=== PATIENT | male | born 1980 | race Caucasian/White ===

== ENCOUNTER 2023-03-28 12:04 | Emergency (ER) | payer MEDICARE, MEDICAID, SELFPAY ==
[2023-03-28] VITALS (23 sets, daily range): BP systolic 68–117; BP diastolic 29–72; PULSE 68–98; RESP 13–28; TEMP 36.1; O2SAT 82–100
--- NOTE | 2023-03-28 12:11 | ED.DIZZY ---
HPI - Dizziness General Chief Complaint: Dizziness Stated Complaint: low blood pressure Time Seen by Provider: 03/28/23 12:08 Source: patient, EMS and RN notes reviewed Mode of arrival: EMS Limitations: no limitations History of Present Illness HPI Narrative: patient states that shortly after breakfast he just did not feel good . He tried to go to work but he continued to feel weak lightheaded general malaise. He has a history of coronary artery disease, hypertension, hyperlipidemia. He denies any cough, nausea vomiting diarrhea, urinary symptoms, fever chills. Consequently feeling so bad he called an ambulance and they found him to have low blood pressure 60 over palp. MD elicited complaint: lightheadedness and other ( Low BP) Onset (ago): hour(s) (5) Timing: sudden onset Severity: moderate Description: lightheadedness Exacerbating factors: movement/ambulation Relieving factors: rest Associated symptoms: denies other symptoms Related Data Home Medications Medication Instructions Recorded Confirmed clindamycin HCl 300 mg capsule 300 mg PO DAILY 03/28/23 03/28/23 hydrochlorothiazide 25 mg tablet 25 mg PO DAILY 03/28/23 03/28/23 lisinopril 40 mg tablet 40 mg PO DAILY 03/28/23 03/28/23 prazosin 2 mg capsule 2 mg PO DAILY 03/28/23 03/28/23 simvastatin 40 mg tablet 40 mg PO DAILY 03/28/23 03/28/23 Allergies Allergy/AdvReac Type Severity Reaction Status Date / Time aspirin Allergy Unknown INTERNAL Verified 03/28/23 12:29 BLEEDING PMFSH Past Medical History Medical History (Updated 03/28/23 @ 14:30 by Cory Mckinley MD) Coronary artery disease Hyperlipidemia Hypertension Surgical History Surgical History (Updated 03/28/23 @ 12:34 by Cory Mckinley MD) Coronary artery disease involving coronary bypass graft of [place] heart Exam Const: General: no acute distress, confusion, diaphoretic and ill appearing acutely Nutritional Appearance: well nourished and obese Orientation/consciousness: patient oriented x3 Limitations: no limitations HENMT: Head: normal to inspection Ears: EAC's normal Face/Nose/Sinus: Normal external nose present Face and sinus: normal facial exam Mouth: Yes dry mucous membranes Eyes: Conjunctivae: conjunctivae normal Pupils: Equal, round and reactive pupils present EOM: EOMs intact bilaterally Neck: Neck: normal visual inspection Resp: Effort & Inspection: normal respiratory effort Auscultation: clear to auscultation bilaterally Cardio: Rate: regular rate Rhythm: regular rhythm GI: GI Palp: Yes Soft to palpation and No Tenderness to palpation present (GI) Auscultation: normal bowel sounds Back/Spine/Pelvis: Cervical Spine: cervical ROM normal Thoracic/Lumbar Spine: thoraco-lumbar ROM normal Skin: General skin exam: normal color Rashes: no rashes Neuro: General: patient oriented x3, moves all extremities, no focal motor deficits and CN's II-XI intact bilaterally Speech: normal speech Extrem: General: normal to inspection and no clubbing, cyanosis or edema Psych: Mental Status: mental status grossly normal Affect: Indifferent affect present Attitude: cooperative Course Course Emergency Course: patient received 2 L of normal saline. He is able to eat a sandwich and drink soda without difficulty. He says he feels much better. Vital Signs Vital signs: Vital Signs Temperature 36.1 C L 03/28/23 12:04 Pulse Rate 72 03/28/23 12:04 Respiratory Rate 16 03/28/23 12:04 Blood Pressure 68/29 L 03/28/23 12:04 Pulse Oximetry 91 03/28/23 12:04 Oxygen Delivery Room Air 03/28/23 12:04 Temperature 36.1 C L 03/28/23 12:04 Pulse Rate 98 03/28/23 14:11 Respiratory Rate 24 H 03/28/23 14:11 Blood Pressure 102/66 03/28/23 14:11 Pulse Oximetry 96 03/28/23 14:11 Oxygen Delivery Nasal Cannula 03/28/23 12:36 Oxygen Flow Rate 2 03/28/23 12:36 MDM - Dizziness MDM Narrative Medical decision making narrative: I discussed the
--- NOTE | 2023-03-28 12:12 | ECG_ITS ---
Measurements Intervals [place] Rate: 74 P: 68 MD: 157 QRS: 40 QRSD: 154 T: 62 QT: 441 QTc: 492 Interpretive Statements SINUS RHYTHM INDETERMINATE AXIS RIGHT BUNDLE BRANCH BLOCK [120+ ms QRS DURATION, UPRIGHT V1, 40+ ms S IN I/aVL/V4/V5/V6] NO PREVIOUS ECG AVAILABLE FOR COMPARISON Electronically Signed On 03-28-2023 20:10:17 CDT by Darby Mayberry M.D.
[2023-03-28] MEDS: SODIUM CHLORIDE 0.9% IV 1,000 ML 999 ML IV CONT ×2 (12:18→12:52)
[2023-03-28 12:47] LABS: Basophils Absolute Auto 0.03 K/mm3 (0.00-0.10); Basophils Percent Auto 0.3 % (0.0-1.0); Eosinophils Absolute Auto 0.16 K/mm3 (0.02-0.50); Eosinophils Percent Auto 1.4 % (1.0-6.0); Hematocrit 42.4 % (40.0-54.0); Hemoglobin 13.6 g/dL (14.0-18.0); Immature Granulocyte Absolute 0.04 K/mm3 (0.00-0.00); Immature Granulocyte Percent A 0.3 % (0.0-0.0); Lymphocytes Absolute Auto 1.21 K/mm3 (1.10-4.50); Lymphocytes Percent Auto 10.4 % (18.0-42.0); Mean Corpuscular HGB Conc 32.1 g/dL (32.0-36.0); Mean Corpuscular Hemoglobin 29.8 pg (27.0-31.0); Mean Platelet Volume 10.6 fl (8.7-11.0); Monocytes Absolute Auto 0.79 K/mm3 (0.10-0.90); Monocytes Percent Auto 6.8 % (2.0-11.0); Neutrophils Absolute Auto 9.4 K/mm3 (1.7-7.2); Neutrophils Percent Auto 80.8 % (50.0-70.0); Platelet Count Result 210 K/mm3 (150-420); Red Blood Count 4.56 M/mm3 (4.70-6.10); Red Cell Distribution Width 12.9 % (11.6-14.4); White Blood Count 11.7 K/mm3 (4.8-10.8)
[2023-03-28 13:03] LABS: Alanine Aminotransferase 28 U/L (16-63); Albumin Level 3.4 g/dL (3.4-5.0); Alkaline Phosphatase 75 U/L (46-116); Anion Gap 8 mmol/L (8-16); Aspartate Amino Transferase 13 U/L (15-37); Bilirubin,Total 0.5 mg/dL (0.00-1.00); Blood Urea Nitrogen 18 mg/dL (7-18); CRP 2.8 mg/dL (0.0-0.9); Calcium 8.8 mg/dL (8.5-10.1); Carbon Dioxide 29 mmol/L (21-32); Chloride 105 mmol/L (98-108); Estimated CRCL calculation 40 ml/min; Estimated Glomerular Filt Rate 32; Glucose 112 mg/dL (70-99); Magnesium 2.2 mg/dL (1.8-2.4); Osmolality Calculated 296 mOsm/kg (285-295); Potassium 4.2 mmol/L (3.5-5.1); Sodium 142 mmol/L (136-145); Total Protein 6.3 g/dL (6.4-8.2)
[2023-03-28 13:06] LABS: Lactic Acid Reflex 1.8 mmol/L (0.4-2.0)
[2023-03-28 13:13] LABS: Troponin I 5.3 ng/L (0.00-60.4)
[2023-03-28 14:00] LABS: Appearance Urine Clear (Clear); Bilirubin Urine Negative (Negative); Blood Urine Negative (Negative); Color Urine Light Yellow (Yellow); Glucose Urine UA Negative (Negative); Ketones Urine Negative (Negative); Leukocyte Esterase Ur Negative LEU/UL (Negative); Nitrate Urine Negative (Negative); Protein Urine Negative (Negative); Specific Grav Ur 1.025 (1.010-1.020); Urobilinogen Urine 0.2 mg/dL (0.2-1.0)
[2023-03-28 14:14] LABS: Add Urine Microscopic? NO
[2023-03-28 14:20] LABS: Amphetamine Screen Urine Negative (Negative); Barbiturate Screen Urine Negative (Negative); Benzodiazepines Screen Urine Negative (Negative); Cannabinoid Screen Urine Negative (Negative); Cocaine Screen Urine Negative (Negative); Opiate Screen Urine Negative (Negative); Phencyclidine Screen Urine Negative (Negative)
== END 2023-03-28 14:50 | disposition home or self-care (01) ==
PROVIDERS: Emergency Provider Emergency Medicine; PCP Family Medicine
DX: I95.9 Hypotension, unspecified (principal); E86.0 Dehydration; I25.10 Atherosclerotic heart disease of native coronary artery without angina pectoris; E78.5 Hyperlipidemia, unspecified; I10 Essential (primary) hypertension; Z79.899 Other long term (current) drug therapy
CPT/HCPCS: 36415; 80053; 80307; 81003; 83605; 83735; 84484; 85025; 86140; 93005; 96360; 99284; J7030

== ENCOUNTER 2024-10-03 08:35 | Outpatient (CLI) | payer MEDICARE, MEDICAID, SELFPAY ==
--- OUTSIDE RECORDS SUMMARY | 2024-10-03 08:46 | XMS_ITS | Patient Health Record ---
Author Organization [facility] Address [address] [place] [address] Care Team Providers Care Coke Drawer Hand Name Role Phone Magalyjeremy Nicanor Primary Care Provider Allergies Allergen (clinical drug ingredient) Drug/Non Drug Allergy documented on EMR Reaction Allergy Type Onset Date Status aspirin Aspirin Unknown Drug Allergy Active Reason For Referral No Information Medications Medication SIG (Take, Route, Frequency, Duration) Notes Start Date End Date Status traZODone HCl 100 MG 1 tablet at bedtime Orally Once a day Active hydrOXYzine Pamoate 25 MG TAKE 1 CAPSULE BY MOUTH THREE TIMES DAILY NEEDED FOR ANXIETY Oral Active FLUoxetine HCl 20 MG 1 capsule Orally On ce a day Active Lisinopril 20 MG TAKE 1 TABLET BY GREGG TH ONCE DAILY FOR 30 DAYS Oral for 30 days Active Simvastatin 40 MG 1 tablet in the even ing Orally Once a day for 30 day(s) Active Flonase Allergy Relief 50 MCG/ACT 1 spray in each nostril Nasally Once a day for 30 day(s) 12/11/2020 Active Albuterol Sulfate HFA 108 (90 Base) MCG/ACT 1 puff as needed Inhalation every 4 hrs for 30 days 12/11/2020 Active Immunizations Vaccine Route Administration Date Status Comme nts FLU VAC NO PRSV 4 MARCUS >6 MO Unknown 04/01/2021 Refused Influenza, seasonal, injectable (split), for 3 yrs and up Unknown 04/01/2021 Administered Moderna COVID-19 IM Intramuscular 09/29/2020 Administered Moderna COVID-19 Unknown 12/08/2020 Administered Pneumococcal polysaccharide PPV23 Unknown 04/01/2021 Administered PNEUMOCOCCAL VACC 13 MARCUS IM Unknown 04/01/2021 Refused Social History Tobacco Use: Social History Observation Description Date Details (start date - stop date) Never Smoker NA - NA Tobacco Use/Smoking Question Answer Notes Are you a nonsmoker Alcohol Screen (Audit-C) Question Answer Notes Interpretation Negative Sexual History Question Answer Notes Had sex in the past 12 months (vaginal, oral, or anal)? No Have you ever had a Sexually transmitted disease ? No Tobacco use other than smoking: Question Answer Notes Are you an other tobacco user? No Problems Problem Type SNOMED Code ICD Code Onset Dates Problem Status W/U Status Risk Notes Problem Low back pain (620496008) Low back pain (M54.5) Active confirmed Problem Obesity (806819125) Obesity (BMI 30-39.9) (E66.9) Active confirmed Problem Obstructive sleep apnea (78263793) Obstructive sleep apnea (G47.33) Active confirmed Problem Insomnia (296251836) Insomnia (G47.00) Active confirmed Problem Hyperlipidemia (69609439) Hyperlipidemia (E78.5) Active confirmed Problem Essential hypertension (80509920) Essential hypertension (I10) Active confirmed Problem Mixed anxiety and depressive disorder (617108292) Depression with anxiety (F41.8) Active confirmed Plan Of Treatment No Information Insurance Providers Payer Name Payer Address Payer Phone Subscriber Number Group Number Insured Name Patient Relationship to Insured Coverage Start Date Coverage End Date PETE Luo [employer] [address] [place] [phone] [id number] Ivan Pantoja Self - patient is the insured Medical (General) History Medical History History ICD Code left ear drum reconstruction leg surgery Chronic Back Pain Hyperlipidemia Depression Anxiety HTN Insomnia Surgical History Surgery Date(Month/Year) CABG Lt ankle repair Lt Ear Reconstuction Hospitalization History Reason Date(Month/Year) CABG
--- OUTSIDE RECORDS SUMMARY | 2024-10-03 08:46 | XMS_ITS | Continuity of Care Document ---
Author Organization [facility] Address [address] [place] [id number] Phone Care Team Providers Care Optical Mechanic Name Role Phone Lilibeth Benson MD Unavailable Unavailable Allergies, Adverse Reactions, Alerts Substance Reaction Status Criticality aspirin Bleeding Active No Information Medications Medication Instructions Dosage Effective Dates (start - stop) Status Comments ProAir RespiClick 90 mcg/actuation breath activated inhale 2 puff by inhalation route every 4 - 6 hours as needed 180 MCG - Active MAY USE VENTION IF NEEDED amoxicillin 500 mg tablet take 1 tablet by oral route every 8 hours 500 MG - Active atorvastatin 20 mg tablet take 1 tablet by oral route QHS - Active hydrochlorothiazide 12.5 mg capsule take 1 capsule by oral route every day 12.5 MG - Active lisinopril 40 mg tablet take 1 tablet by oral route every day 40 MG - Active Wellbutrin SR 100 mg tablet, 12 hr sustained-release take 1 tablet by oral route 2 times every day 100 MG - Active Procedures Procedure Date OFFICE/OUTPATIENT VISIT, EST OFFICE/OUTPATIENT VISIT, EST OFFICE/OUTPATIENT VISIT, NEW Advance Directives Directive Yes / No Effective Date File Name No Information Encounters Encounter Description Practice Location Reason(s) For Visit Diagnoses Date Provider Providers Copied on Encounter [facility], [address] [place] [address], [id number], [place] tel:[phone] [place] No Information [address] Benson [address]. [address] [place] [address], [facility], . tel: [phone] [facility], [address] [place] [address], [facility], tel: [phone] [place] Acute bronchiolitis, unspecifiedWheezi ng 0 [address] [place], [place], [facility], . tel: [phone] OFFICE/OUTPA TIENT VISIT, [facility], [address] [place] [address], [facility], tel: [phone] [place] Reactive otitis externa of left ear, unspecified chronicity 8 Benson [address]. [address] [place] [address], [facility], . tel: [phone] OFFICE/OUTPA TIENT VISIT, [facility], [address] [place] [address], [facility], tel: [phone] [place] EARACHE (chief complaint) Impacted cerumen, right earOther otitis externa, left ear 8 Benson [address] [place] [address], [facility], . tel: [phone] OFFICE/OUTPA TIENT VISIT, [facility], [address] [place] [address], [facility], tel: [phone] [place] EST CARE (chief complaint) Essential (primary) hypertensionHyper lipidemia, unspecifiedGERD w/o esophagitisSleep apneaDepression 2 8 Benson [address]. [address] [place] [address], [facility], . tel: [phone] Family History Family Member Type Diagnosis Age At Onset Father Problem (finding) Diabetes mellitus Father Problem (finding) hypertension Father Problem (finding) Hearing deficiency Father Problem (finding) Leukemia Father Problem (finding) hypercholesterolemia Payers Payer name Insurance type Covered alliance party ID Authoriza tion(s) No Information Social History Type Description Quantity Date Captured Comments Alcohol Use Details Unknown Caffeine Use Details Unknown Tobacco Use Status No Information Smoking Status No Information Sex Male Chief Complaint And Reason For Visit No Information Reason For Referral Reason For Referral No Information Plan Of Treatment Date Type Action Status Referral Ordered: POLYSOMNOGRAPHY W/CPAP Appointment date/timeframe: 12/13/2017 ordered History Of Present Illness Encounter Date Complaint History Of Prese nt Illness [facility]. Pt was hear a week ago for left ear pain. Pt states his ear no longer hurts. EARACHE Onset: 2 days ag o. The patient states the earache is in the left ear. It occurs constantly. The problem is with no change. Context: repeated Q-Tip use. Denies aggravating factors. Denies relieving factors. Associated symptoms include ear pressure. Pertinent negatives include bleeding from ear(s), congestion (nasal), cough, decreased appetite, dizziness, drainage (clear), drainage (purulent), ear popping, fever, fullness in ears, hearing deficit, irritability, loss of balance, malaise, mastoid bone tenderness, nausea, redness/swelling outer ear, ringing in ears, tooth pain and vomiting. EARACHE (comments) NO PAIN IN RI GHT EARNO DRAINAGE FROM LEFT EST CARE PT PRESENTS TO [facility] WITH DR Senthil DRAKE STATES THAT HE WAS SEEING DR BURTON BEFORE Functional Status Date Functional Assessmen t No Information Instructions Date Instruction Additional Infor bobby IMPROVED W/O ANY SYM PTOMS NO TREATMENT NEEDED Related to Reactive otitis externa of left ear, unspecified chronicity DO NOT INSERT Q-TIPS IN EARS Rel ated to Reactive otitis externa of left ear, unspecified chronicity RIGHT EAR CANAL IRRIGATED- Relat ed to Impacted cerumen, right ear NO Q-TIPS IN EARS-NO SWIMMING Re lated to Other otitis externa, left ear FINISH ANTIBIOTICS Related to Ot her otitis externa, left ear PT HAS HAD A HX OF S LEEP APNEAHIS C-PAP MACHINE IS NOT WORKING X 2 YEARS Related to Sleep apnea Eat smaller meals, n o eating three hours prior to bedtime. Related to GERD w/o esophagitis Elevate head of bed prior to sle ep. Related to GERD w/o esophagitis Goal of treatment di scussed, observe for suicidal thoughts Related to Depression Observe for medicati on side effect, Observe for worsening s/s Related to Depression Encouraged coping ac tivities, counseling-CALL IF ANY SUICIDAL THOUGHTS Related to Depression Monitor for worsening symptoms R elated to Sleep apnea Follow a low sodium diet. Relate d to Essential (primary) hypertension Stop smoking. Related to Essen tial (primary) hypertension Increase activity. Related to Es sential (primary) hypertension Avoid provocative fo ods: citrus, alcohol, coffee, chocolate, mints. Related to GERD w/o esophagitis Follow a low FAT/LESS MEAT - T Related to Hyperlipidemia, unspecified TAKE YOURMEDS AT NIGHT Related t o Hyperlipidemia, unspecified Increase activity. Related to Hy perlipidemia, unspecified Assessments Type Assessment Date No Information Patient Care Teams Name Effective Dates (start - stop) Status Members No Information
--- NOTE | 2024-10-03 09:58 | PCRCNOTE ---
Patient came in for a Pre and Post Spirometry. Attempted multiple coaching efforts and patient decided he was done and wanted to go home and stop testing. I called the [facility] and informed them of the testing.
== END 2024-10-03 08:36 | disposition home or self-care (01) ==
LOC: CHSCARD 08:39
PROVIDERS: PCP Nurse Practitioner; Visit Provider Nurse Practitioner
DX: J44.9 Chronic obstructive pulmonary disease, unspecified (principal)
CPT/HCPCS: 99199